=== PATIENT | female | born 1975 | race Caucasian/White ===

== ENCOUNTER 2018-05-03 06:09 | Emergency (ER) | payer SELFPAY ==
[~2018-05-03] VITALS: Ht 157.5 cm; Wt 59.0 kg
[2018-05-03] MEDS ORDERED: CLINDAMYCIN PHOS 600 MG/ 4 ML VIAL IM ONE (06:45)
== END 2018-05-03 07:07 | disposition home or self-care (01) ==
LOC: FSED 06:09
DX: L03.114 Cellulitis of left upper limb (principal)
CPT/HCPCS: 99282